=== PATIENT | male | born 1975 | race African-American/Black ===

== ENCOUNTER 2020-12-03 15:45 | Emergency (ER) | payer SELFPAY ==
[~2020-12-03] VITALS: Ht 190.5 cm; Wt 107.0 kg
[2020-12-03] MEDS ORDERED: TETANUS, DIPHTHERIA, PERTUSSIS VAC/PF 0.5ML (>7YR OLD) IM ONE (17:30)
[2020-12-03] MEDS ORDERED: LIDOCAINE HCL 1% 20ML VIAL (Pyxis) INJ INFIL ONE (17:30)
[2020-12-03 19:59] VITALS: BP 147/84
== END 2020-12-03 20:05 | disposition home or self-care (01) ==
LOC: ER 15:45
DX: L03.011 Cellulitis of right finger (principal)
CPT/HCPCS: 90471; 90715; 99283; J3490; Z7610